=== PATIENT | male | born 1985 | race Caucasian/White ===

== ENCOUNTER 2016-04-19 06:54 | Emergency (ER) | payer OTHER ==
[2016-04-19 07:13] VITALS: BP 120/82
[2016-04-19] MEDS ORDERED: TYLENOL PO ONE (14:23)
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
== END 2016-04-19 17:25 | disposition home or self-care (01) ==
LOC: ED 06:54
DX: S62.324A Displaced fracture of shaft of fourth metacarpal bone, right hand, initial encounter for closed fracture (principal); V49.49XA Driver injured in collision with other motor vehicles in traffic accident, initial encounter; Y93.9 Activity, unspecified; Y92.9 Unspecified place or not applicable; Y99.9 Unspecified external cause status